=== PATIENT | female | born 1975 | race Two or more races ===

== ENCOUNTER 2023-09-03 12:20 | Emergency (ER) | payer OTHER, SELFPAY ==
[2023-09-03 12:21] VITALS: BP 135/98
--- NOTE | 2023-09-03 13:17 | ED.MUSCINJ ---
HPI-Injury
General
Chief Complaint: Musculo-Skeletal Complaint
Source: patient
Time Seen by Provider: 09/03/23 13:09
History of Present Illness-Injury
Initial Injury comments:
47yoF presenting for evaluation of right foot pain. She was at work this morning and was putting something in a cabinet. She accidentally stepped on a shoe causing her to roll her ankle. The incident occurred around 9:30am. She presents with
gradually worsening right foot pain and inability to bear weight. She also has paresthesias to her 4th and 5th toe. No prior injuries to the right foot.
Past History
Past History
ED Past Medical History: None
ED Past Surgical History: None
Social History
Tobacco: Non-smoker
Alcohol: None
Phy Exam
Physical Exam
Physical Exam:
Right foot: No deformity or skin changes. +Tenderness to lateral foot along 5th metatarsal. No ankle tenderness. ROM of ankle intact. 2+ PT and DP pulses. Sensation intact.
General Physical Exam
General Presentation: well appearing and no apparent distress
General Skin: warm and dry
Injury Course
Orders/Labs/Results
Orders:
Orders
09/03/23 12:30
Foot, Right 3 View [CR Foot - Right Min 3 Views] Urgent
Comment:
Reason For Exam: injury
09/03/23 13:19
Magdy Wrap Right-Treatment ONCE
Comment: R foot
Air Splint Right-Treatment ONCE
Crutches-Treatment ONCE
MDM/Problems Addressed
Differential Diagnosis Includes:
47yoF here with R foot pain after an injury. No deformity on exam. RLE is neurovascularly intact. Differential diagnosis includes but is not limited to: fracture, sprain.
X-rays of R foot obtained which are negative for fracture. She was diagnosed with a foot sprain. Magdy wrap, air cast, and crutches provided. Supportive care discussed. Advised f/u with occupational medicine/orthopedics.
*Critical Care Note
Total Time (30-74mins, 75-104mins- exclusive of procedures): Not Applicable
ED Attending Note
-
Portions of this chart may have been created with voice recognition software.� Occasional wrong word or��sound alike� substitutions may have occurred due to the inherent limitations of voice recognition software.
Discharge Plan
Departure
Patient Disposition: Home (Routine Discharge)
Date of Disposition: 09/03/23
Time of Disposition: 13:20
Patient with high blood pressure during this ER visit?: No
Discharge Problem:
Right foot sprain
Instructions: Foot Sprain ED
Referrals:
Quirino Ferraro MD [Active] -
Stand Alone Forms: Return to Work
Activity Restrictions/Additional Instructions:
Rest, ice, compress, and elevate your foot. Use crutches and air cast for comfort. Take Tylenol and ibuprofen for pain.
Please follow-up with orthopedics.
Interventions
Interventions:
*Risk Screen - Suicide Last Done: 09/03/23 12:27
*General Assessment Last Done: 09/03/23 12:27
*Neglect/Abuse Screening Last Done: 09/03/23 12:27
ED- Fall Risk Assessment Last Done: 09/03/23 12:49
*ED COVID-19 Vaccine History Last Done: 09/03/23 12:49
*Nursing Disposition Last Done: 09/03/23 13:46
ED-Musculoskeletal Assessment Last Done: 09/03/23 12:49
Discharge Date and Time
Discharge Date/Time: 09/03/23 13:46
Print Language: DIVEHI
== END 2023-09-03 13:46 | disposition home or self-care (01) ==
LOC: EMR 12:20
PROVIDERS: EMERGENCY PHYSICIAN Emergency Medicine; FAMILY PHYSICIAN Internal Medicine
DX: S93.601A Unspecified sprain of right foot, initial encounter (principal); X50.1XXA Overexertion from prolonged static or awkward postures, initial encounter
CPT/HCPCS: 99283; 73630